=== PATIENT | male | born 1970 | race Caucasian/White ===

== ENCOUNTER 2019-05-20 12:46 | Emergency (ER) | payer SELFPAY ==
[2019-05-20 13:06] VITALS: BP 133/87; PULSE 77; RESP 18; TEMP 36.7; O2SAT 98; BMI 28.4
--- NOTE | 2019-05-20 14:22 | XR_ITS ---
WS: [id number] Portable AP upright chest, 05/20/2019 Clinical Data: chest pain Comparison: None. Findings: No nodules, masses or effusions are seen. The heart is normal. The pulmonary vascularity is not increased. No pneumonia or pneumothorax is seen. XR/XR chest 1V portable [id number] Impression: Negative chest.
--- NOTE | 2019-05-20 14:22 | ECG_ITS ---
Measurements Intervals [place] Rate: 87 P: 53 VT: 133 QRS: 65 QRSD: 95 T: 70 QT: 361 QTc: 436 SINUS RHYTHM WITH MARKED SINUS ARRHYTHMIA No previous ECG available for comparison Electronically Signed On 05-20-2019 17:50:11 BUTTON PUNCHER by Terri Juan M.D. [id number]
--- NOTE | 2019-05-20 14:48 | ED_ITS ---
Entered by Lindsay Sanchez, acting as scribe for HPI - Chest Pain General: Chief Complaint: Chest Pain Stated Complaint: numbness/heavy chest Time Seen by Provider: 05/20/19 14:48 Source: patient Mode of arrival: ambulatory Limitations: no limitations History of Present Illness: HPI narrative: 48 yo Male presents to ED with complaint of heaviness and pressure in his chest. Pt states that he had a heart catheterization several years ago. Pt states that this pressure started on and radiated into the left side of his neck. Pt states that this morning he had numbness in his upper extremities and his jaw. Pt states that he gets short of breath with exertion. MD complaint: chest heaviness and chest discomfort Onset (ago): day(s) (4 ()) Timing of current episode: constant and still present Onset: during rest Pain location: left chest and right chest Pain radiation: neck (left side) and jaw/teeth (numbness) Pain scale (0-10): 3 Quality: heaviness and dull Exacerbating factors: exertion Associated symptoms: Deny diaphoresis, dyspnea, fever(s), nausea, palpitations, syncope or vomiting Risk Factors: Coronary artery disease risk factors: hypertension and family history of CAD before age 50 Review of Systems General: Reports: other (negative unless marked) Const: Denies: fever, chills, body aches, fatigue, malaise or diaphoresis Eyes: Denies: change in vision or blurry vision ENMT: Denies: throat pain, painful swallowing, hoarseness, ear pain, ear discharge, Change in hearing or nasal discharge Card: Reports: chest pain; Denies: palpitations, irregular heart rhythm, syncope, pre-syncope, shortness of breath on exertion or shortness of breath when lying down Resp: Denies: shortness of breath GI: Denies: nausea or vomiting : Denies: flank pain, difficulty urinating, painful urination, urinary frequency, urinary urgency, decreased urine ouput, urinary incontinence or blood in urine Musc: Denies: neck pain, back pain, extremity pain, extremity swelling, joint pain, joint swelling, joint warmth or joint stiffness Skin/Breast: Denies: rash, skin tenderness or yellow skin Neuro: Denies: headache, numbness in extremities, weakness in extremities, changes in sensation, lack of coordination, difficulty walking, dizziness, vertigo or confusion Endo: Denies: excessive thirst, tired all the time, cold intolerance, excessive sweating, flushing or hot flashes Shai/Lymph: Denies: easy bruising, easy bleeding, petechiae or enlarged lymph nodes All/Imm: Denies: hives, throat swelling, tongue swelling, facial swelling or acute wheezing PFSH ED PFSH: Statuses (acute, chronic, etc) shown below reflect problem list status as previously entered and may not be historically accurate Medical History (Updated 05/20/19 @ 17:32 by Mell Madrigal) HTN (hypertension) (Acute) Family History (Updated 05/20/19 @ 14:58 by Lindsay Sanchez) Father , of heart attack at age 49 CAD (coronary artery disease) Social History Smoking and tobacco status: never smoked Physical Exam Const: COMMON NORMALS: no apparent distress, oriented x3, no limitations, healthy appearing and well nourished EXAM LIMITATIONS: no altered mental status GENERAL APPEARANCE: cooperative, well kempt and well developed ORIENTATION/CONSCIOUSNESS: Yes awake HENMT: COMMON NORMALS: normocephalic, head/scalp atraumatic, hearing grossly normal bilaterally, external ears normal, EAC's normal, external nose normal and moist oral mucous membranes HEAD & SCALP: normal to inspection, normocephalic and atraumatic FACE & SINUS: normal facial exam and face symmetric NOSE: external nose normal and nares normal EXTERNAL EAR: Yes external ears normal EXTERNAL AUDITORY CANAL: EAC's normal MOUTH: oral and palatal mucosa normal and tongue normal Eye: COMMON NORMALS: PERRL, EOMs intact bilaterally, conjunctivae normal and no scleral icterus GENERAL EYE: normal appearance of both eyes and normal light reflex CONJUNCTIVA: Yes conjunctivae normal SCLERA: sclerae normal CORNEA: Yes corneas normal PUPIL: Yes PERRL DIRECT OPHTHALMOSCOPY: Yes normal light reflex Neck/C-Spine: COMMON NORMALS: full ROM, no lymphadenopathy, supple, no meningeal signs and no JVD GENERAL: Yes normal visual inspection and Yes trachea midline CERVICAL SPINE: Yes cervical ROM normal Chest: COMMONS NORMALS: inspection of chest normal and palpation of chest normal Resp: COMMON NORMALS: normal respiratory effort, no retractions, no use of accessory muscles and clear to auscultation bilaterally EFFORT & INSPECTION: Yes able to speak in complete sentences AUSCULTATION: clear to auscultation bilaterally Cardio: COMMON NORMALS: no JVD, regular rate, regular rhythm, S1 normal heart sound, S2 normal heart sound, no gallops, no clicks, no murmurs and no rub JUGULAR VENOUS DISTENTION: no JVD RATE: regular rate RHYTHM: regular rhythm HEART SOUNDS: S1 normal and S2 normal GI: COMMON NORMALS: soft to palpation, non-tender, no hepatosplenomegaly and no masses INSPECTION: Yes normal to inspection PALPATION: Yes soft and Yes no hepatosplenomegaly : COMMON NORMALS: Yes no CVA tenderness BLADDER/KIDNEY EXAM: Yes no CVA tenderness Back/Pelvis: COMMON NORMALS: no CVA tenderness, thoracic and lumbar spine normal to inspection, no thoracic nor lumbar tenderness and thoraco-lumbar ROM normal Extremity: COMMON NORMALS: normal to inspection, full ROM, normal capillary refill, no joint enlargement, no clubbing, cyanosis or edema and no calf tenderness Neuro: COMMON NORMALS: oriented x3, CN's II-XII intact bilaterally, moves all extremities, no focal motor deficits and no sensory deficits noted MENINGEAL SIGNS: Yes no meningeal signs Psych: COMMON NORMALS: mental status grossly normal, thought process normal, cooperative, affect normal, speech normal and activity/motor behavior normal APPEARANCE: Yes well kempt SPEECH: Yes normal speech THOUGHT PROCESS: normal thought process Skin: COMMON NORMALS: no rashes or lesions noted, skin turgor normal, no jaundice, no petechiae and no mottling GENERAL SKIN EXAM: no rashes or lesions noted and turgor normal Course Vital Signs: Vital signs: Vital Signs Temperature 98.0 F 05/20/19 13:06 Pulse Rate 67 05/20/19 17:29 Respiratory Rate 16 05/20/19 17:29 Blood Pressure 114/84 05/20/19 17:29 Pulse Oximetry 97 05/20/19 17:29 MDM - Chest Pain MDM Narrative: Medical decision making narrative: Humble is a very nice 48-year-old male who comes in complaining of chest pain. His chest pain is been constant for the past 2 days. It is waxed and waned in intensity but it is never completely gone away. He has a possible component of shortness of breath but denies any radiation of his pain, nausea/vomiting, exertional component or any other exacerbating or alleviating factors. The patient did have relief with nitroglycerin here that was partial. He has a history of hypertension and a family history of heart disease but otherwise no risk factors. His heart score is 3. He has had a negative EKG and troponin with constant chest pain over 8 hours which should exclude ACS based upon literature. He wanted to go home but after I encouraged him to stay for second EKG and troponin his second EKG is normal and his troponin is still at the lowest level and unchanged. The patient does not want to stay and wants to be discharged. He wants to follow-up with his doctor to see if they recommend if he have a outpatient stress test. I have informed him still that this still could be his heart and if his symptoms return he needs to return to the ER. He states he will do so but at this time he still wants to be discharged. The patient was warned that he was also welcome to return. Lab Data: Labs: Lab Results 05/20/19 05/20/19 05/20/19 Range/Units 14:47 14:47 14:47 WBC 7.0 (4.0-10.0) 10^3/ uL RBC 5.07 (4.1-5.3) 10^6/u L Hgb 15.2 (11.7-16.6) g/dL Hct 46.8 (42.0-52.0) % MCV 92.3 (80-94) fL MCH 30.0 (28.0-34.0) pg MCHC 32.5 (30.0-36.0) g/dL RDW 13.8 (12.1-15.1) % Plt Count 345 (130-400) 10^3/c mm MPV 9.8 (7.4-10.4) fL Neut % (Auto) 72.5 % Lymph % (Auto) 18.5 % Sauk % (Auto) 6.6 % Eos % (Auto) 1.4 % Baso % (Auto) 0.6 % Neut # (Auto) 5.1 (1.8-7.7) 10^3/u L Lymph # (Auto) 1.3 (0.8-4.8) 10^3/u L [place] # (Auto) 0.5 (0.2-0.9) 10^3/u L Eos # (Auto) 0.1 (0.0-0.8) 10^3/u L Baso # (Auto) 0.0 (0.0-0.1) 10^3/u L Nucleated RBC % (a uto) 0 % Nucleated RBCs # 0.0 /100WBC D-Dimer (0-0.59) ug/mIFE U Sodium 138 (136-145) mmol/L Potassium 4.2 (3.5-5.1) mmol/L Chloride 97 L (98-107) mmol/L Carbon Dioxide 31 H (22-29) mmol/L Anion Gap 14.2 (5-19) BUN 8 (6-20) mg/dL Creatinine 1.1 (0.7-1.2) mg/dL GFR Calculation 71.8 L (90-130) mL/min Glucose 125 H (74-109) mg/dL Calcium 10.8 H (8.6-10.0) mg/Dl Total Bilirubin 0.3 (0.15-1.2) mg/dL AST 18 (0-40) U/L ALT 15 (0-41) U/L Alkaline Phosphata se 81 (40-130) IU/L Troponin T Baselin e 6 (0-15) ng/mL Troponin T 120 Min manzanita (0-15) ng/mL Delta Troponin T (0-10) ABS# NT-Pro-B Natriuret Pep (0-125) pg/mL Total Protein 8.6 (6.6-8.7) g/dL Albumin 4.9 (3.5-5.2) g/dL Globulin 3.7 (1.3-4.6) g/dL Lipase (13-60) U/L 05/20/19 05/20/19 05/20/19 Range/Units 14:47 14:47 16:37 WBC (4.0-10.0) 10^3/ uL RBC (4.1-5.3) 10^6/u L Hgb (11.7-16.6) g/dL Hct (42.0-52.0) % MCV (80-94) fL MCH (28.0-34.0) pg MCHC (30.0-36.0) g/dL RDW (12.1-15.1) % Plt Count (130-400) 10^3/c mm MPV (7.4-10.4) fL Neut % (Auto) % Lymph % (Auto) % Sauk % (Auto) % Eos % (Auto) % Baso % (Auto) % Neut # (Auto) (1.8-7.7) 10^3/u L Lymph # (Auto) (0.8-4.8) 10^3/u L [place] # (Auto) (0.2-0.9) 10^3/u L Eos # (Auto) (0.0-0.8) 10^3/u L Baso # (Auto) (0.0-0.1) 10^3/u L Nucleated RBC % (a uto) % Nucleated RBCs # /100WBC D-Dimer <= 0.27 (0-0.59) ug/mIFE U Sodium (136-145) mmol/L Potassium (3.5-5.1) mmol/L Chloride (98-107) mmol/L Carbon Dioxide (22-29) mmol/L Anion Gap (5-19) BUN (6-20) mg/dL Creatinine (0.7-1.2) mg/dL GFR Calculation (90-130) mL/min Glucose (74-109) mg/dL Calcium (8.6-10.0) mg/Dl Total Bilirubin (0.15-1.2) mg/dL AST (0-40) U/L ALT (0-41) U/L Alkaline Phosphata se (40-130) IU/L Troponin T Baselin e (0-15) ng/mL Troponin T 120 Min manzan[place] 6.00 (0-15) ng/mL Delta Troponin T 0 (0-10) ABS# NT-Pro-B Natriuret Pep 5 (0-125) pg/mL Total Protein (6.6-8.7) g/dL Albumin (3.5-5.2) g/dL Globulin (1.3-4.6) g/dL Lipase 19 (13-60) U/L Imaging Data^: CXR: Radiologist's impression: [address] [place] [address] XRay Report Signed Patient: Humble Murray WMR#: [id number] : 1970Acct:[id number] Age/Sex: 48 / MADM Date: 05/20/19 Loc: ER Attending Dr: Ordering Physician: Barrington Miles DO Date of Service: 05/20/19 Procedure(s): XR chest 1V portable [id number] Accession Number(s): [id number] Report Number: [id number] WS: [id number] Portable AP upright chest, 05/20/2019 Clinical Data: chest pain Comparison: None. Findings: No nodules, masses or effusions are seen. The heart is normal. The pulmonary vascularity is not increased. No pneumonia or pneumothorax is seen. XR/XR chest 1V portable [id number] Impression: Negative chest. Dictated By:Ethel Dc MD Signed By:Ethel Dc Date/Time:05/20/191445 DD/ 45 EKG Data^: EKG 1: Attestation: I personally reviewed and interpreted this EKG as follows: (EKG at 1310 reviewed at same time -normal sinus rhythm at 87 beats a minute, normal NM interval, nonspecific ST-T wave changes, otherwise unremarkable) EKG 2: Attestation: I personally reviewed and interpreted this EKG as follows: (EKG performed and read at 1713 -normal sinus rhythm at 64 beats a minute, no acute ST or T wave changes, normal NM interval, normal QRS.) Discharge Plan Discharge Patient Disposition: Home, Self-Care Clinical Impression: Chest pain Qualifiers: Chest pain type: unspecified Qualified Code(s): R07.9 - Chest pain, unspecified Condition: Stable Prescriptions: New aspirin 325 mg tablet 325 mg PO DAILY Qty: 30 RF: 0 No Action Celebrex 200 mg Capsule 200 mg PO BID RF: 0 gabapentin 600 mg Tablet 600 mg PO TID RF: 0 oxycodone 20 mg Tablet 20 mg PO QID PRN (Reason: Pain) RF: 0 Discharge Orders: Discharge Order (Routine); Ordered 05/20/19 Ordered By: Mell Madrigal Other Ambulatory Orders: Sestamibi Stress Test Request (Routine) Timeframe: 1 Week Facility: [facility] - Location: Card[facility] Ordered By: Mell Madrigal Referrals: Rebecca Garcia FNP-C [Primary Care Provider] - 1-3 days Discharge Diet: Low Cholesterol Discharge Activity: Increase activity as tolerated Patient Instructions: Chest Pain (ED) Activity Restrictions/Additional Instructions: Please return to the ER immediately for any of the signs or symptoms listed on your discharge instruction sheets, worsening/changing of your symptoms, you are not getting better as quickly as expected, or for ANY other cause or concerns. I have recommended and offered to admit you to the hospital for further testing but you have declined. Of course any heart problem can be life-threatening so if you change your mind or your symptoms change/worsen in any way please return to the ER immediately for recheck and further evaluation and care. Be certain to follow-up for your outpatient stress test and with your regular doctor as well as with a partner marketing manager as soon as possible for recheck. Discharge Date/Time: 05/20/19 17:47 Coding Level of Care Code ED Jive Developer for Chg Fwd Exam Problem Focused The documentation recorded by the Danile de león Carmen, accurately reflects the service I personally performed and the decisions made by Kaitlin watson Eli N May 20, 2019 12:46
[2019-05-20 14:52] VITALS: BP 120/85; PULSE 81; RESP 15; O2SAT 97
[2019-05-20 14:55] LABS: Basophils % 0.6 %; Eosinophils # 0.1 10^3/uL (0.0-0.8); Eosinophils % 1.4 %; Hematocrit 46.8 % (42.0-52.0); Hemoglobin 15.2 g/dL (11.7-16.6); Lymphocytes # 1.3 10^3/uL (0.8-4.8); Lymphocytes % 18.5 %; Mean Corpuscular HGB Conc 32.5 g/dL (30.0-36.0); Mean Corpuscular Volume 92.3 fL (80-94); Mean Platelet Volume 9.8 fL (7.4-10.4); Monocytes # 0.5 10^3/uL (0.2-0.9); Monocytes % 6.6 %; Neutrophils # 5.1 10^3/uL (1.8-7.7); Neutrophils % 72.5 %; Nucleated Red Blood Cells % 0 %; Platelet Count 345 10^3/cmm (130-400); Red Blood Count 5.07 10^6/uL (4.1-5.3); Red Cell Distribution Width 13.8 % (12.1-15.1)
[2019-05-20] MEDS: aspirin 325 mg Tablet PO (15:00)
[2019-05-20] MEDS: sodium chloride 0.9% 1,000 ML 999 ML IV (15:01)
[2019-05-20] MEDS: nitroglycerin 0.4 mg sublingual Tablet SUBLINGUAL (15:13)
[2019-05-20 15:15] LABS: Alanine Aminotransferase 15 U/L (0-41); Albumin Level 4.9 g/dL (3.5-5.2); Alkaline Phosphatase 81 IU/L (40-130); Anion Gap 14.2 (5-19); Aspartate Amino Transferase 18 U/L (0-40); Blood Urea Nitrogen 8 mg/dL (6-20); Calcium 10.8 mg/Dl (8.6-10.0); Carbon Dioxide 31 mmol/L (22-29); Chloride 97 mmol/L (98-107); Globulin 3.7 g/dL (1.3-4.6); Glomerular Filtration Rate 71.8 mL/min (90-130); Glucose 125 mg/dL (74-109); Potassium 4.2 mmol/L (3.5-5.1); Sodium 138 mmol/L (136-145); Total Bilirubin 0.3 mg/dL (0.15-1.2); Total Protein 8.6 g/dL (6.6-8.7); Troponin(5th) Baseline 6 ng/mL (0-15)
[2019-05-20 15:16] LABS: D Dimer <= 0.27 ug/mIFEU (0-0.59)
[2019-05-20 15:38] LABS: Lipase 19 U/L (13-60); NT Pro B Type Natriuretic Pept 5 pg/mL (0-125)
--- NOTE | 2019-05-20 16:22 | ECG_ITS ---
Measurements Intervals [place] Rate: 64 P: 37 VA: 164 QRS: 54 QRSD: 97 T: 65 QT: 399 QTc: 412 SINUS RHYTHM No previous ECG available for comparison Electronically Signed On 05-20-2019 17:51:53 TANK OFFICER by Terri Juan M.D. [id number]
[2019-05-20 17:14] LABS: Troponin 5 2HR Delta 0 ABS# (0-10)
[2019-05-20 17:29] VITALS: BP 114/84; PULSE 67; RESP 16; O2SAT 97
--- NOTE | 2019-05-23 14:22 | DCPLANNER ---
Patient needs a follow up appointment set up for a stress test. retail analytics manager called patient to confirm that patient still wanted to have stress test ordered, and to confirm who patient sees for primary care. retail analytics manager spoke with patient, was told that patient does still want to have test ordered, and that patient sees Rebecca Garcia for primary care physician. retail analytics manager called centralized scheduling, spoke with Jaquelin, to confirm that scheduling had received the order, and a stress test is scheduled for May at 11:30, patient is aware of scheduled test.
--- NOTE | 2019-06-07 15:13 | DCPLANNER ---
Patient did attend stress test scheduled for 06.06.19.
== END 2019-05-20 17:47 | disposition home or self-care (01) ==
PROVIDERS: Family Medicine; Emergency Provider Emergency Medicine; Family Provider Nurse Practitioner Family; PCP Nurse Practitioner Family
DX: R07.9 Chest pain, unspecified (principal); I10 Essential (primary) hypertension
CPT/HCPCS: 36415; 71045; 80053; 83690; 83880; 84484; 85025; 85378; 93005; 96360; 99282; 99283; J7030

== ENCOUNTER → 2019-05-29 12:09 | Outpatient (BNVA) | payer MEDICAID, SELFPAY | PROVIDERS: Family Provider Nurse Practitioner Family; PCP Nurse Practitioner Family; Visit Provider Nurse Practitioner Family | DX: I10 Essential (primary) hypertension (principal); R07.9 Chest pain, unspecified; R73.9 Hyperglycemia, unspecified | CPT/HCPCS: 83036 ==

== ENCOUNTER 2019-06-06 09:07 | Outpatient (CLI) | payer SELFPAY ==
--- NOTE | 2019-06-06 09:35 | NMCV_ITS ---
NM matthew perf SPECT r/s* [id number] Humble Murray Age: 48 Gender: M : 1970 Exam Date: 06/06/2019 10:53 Ordering Phys: Mell Madrigal DO Technologist: EUGENIO Watson Exam Location: [facility] Indications: Chest Pain STRESS TEST Please see separate stress test report in [facility] for full findings IMAGE PROTOCOL Rest/Stress 1 Lexiscan Day Radiopharmaceutical Dose (mCi) Administration Site Administered by Rest: Tc-99m 10.8 IV EUGENIO Watson Stress:Tc-99m 31.4 IV EUGENIO [place] Rest: 06/06/2019 60 Discovery 630 Stress: 06/06/2019 60 Discovery 630 0.4mg Lexiscan. SPECT RESULTS Technical Quality: Good Raw Data Analysis: Normal Image Corrections: Attenuation correction applied to Stress only. Summed Stress Score: 0 Summed Rest Score: 1 Summed Difference Score: 0 PERFUSION FINDINGS Small area of decreased tracer uptake was noted in the apical inferior wall region, with no significant reversibility. FUNCTIONAL RESULTS (calculated via Gated SPECT) Stress Image LV EF (%): 73 Stress EDV (mL):92 TID: 0.83 Stress ESV (mL):25 FUNCTIONAL FINDINGS: Segmental wall motion analysis revealing no gross wall motion normalities. IMPRESSIONS 1. Myocardial perfusion imaging revealing a small area slightly decreased persistent tracer uptake in the apical inferior wall region , most likely represent attenuation artifact. 2. Normal LV ejection fraction of 73%. 3. LV wall motion analysis revealing no gross wall motion abnormalities. 4. Normal LV volume. No significant coronary ischemia, based on the above findings Dr Tod Castaneda MD FACC (Electronically Signed) Final Date: 06 June 2019 13:37 S
[2019-06-06 10:10] VITALS: BMI 27.6
--- NOTE | 2019-06-06 11:30 | ECG_ITS ---
NAME OF STUDY: LEXISCAN SESTAMIBI STRESS TEST INDICATION: Chest Pain, PROCEDURE: At the baseline, the EKG revealed. The baseline blood pressure was mm Hg with a heart rate of beats/min. Lexiscan was infused over a period of 20 seconds. A total of 0.4 milligrams of Lexiscan was infused. The stress phase was continued for a total of 5 minutes. Heart rate at the end of the stress phase was 87 with a blood pressure 119/77. The EKG at the peak infusion revealed no significant changes. Sestamibi was injected 20 seconds after the Lexiscan infusion. Blood pressure at the end of the recovery phase was 119/77 with a heart rate of 85 per minute. CONCLUSION: 1. No significant EKG changes with the LexiScan infusion 2. No LexiScan induced chest pain or cardiac arrhythmia 3. Normal blood pressure and heart rate response 4. Sestamibi/sestamibi perfusion scan pending; see separate report. Electronically Signed On 06-07-2019 14:10:18 DIRECT CHILL CASTING OPERATOR by Tod Castaneda M.D. [email or web address]
[2019-06-06] MEDS: regadenoson 0.4 Mg/5 ml Syringe IVP (11:55)
[2019-06-06 12:08] VITALS: BP 119/77; PULSE 85
== END 2019-06-06 09:08 | disposition home or self-care (01) ==
PROVIDERS: Family Provider Nurse Practitioner Family; PCP Nurse Practitioner Family; Visit Provider Emergency Medicine
DX: R07.9 Chest pain, unspecified (principal)
CPT/HCPCS: 78452; 93017; A9500; J2785